=== PATIENT | male | born 1955 | race Caucasian/White ===

== ENCOUNTER 2017-07-20 21:14 | Emergency (ER) | payer BC, OTHER ==
[~2017-07-20] VITALS: Ht 185.4 cm; Wt 90.5 kg
[~2017-07-20 21:14] MED LIST: GLUCTAB PO; METH10TA PO
[2017-07-20 21:16] VITALS: BP 158/92; PULSE 115; RESP 16; TEMP 98.4; O2SAT 95
--- NOTE | 2017-07-20 21:42 | PD ---
Physical Exam Date Seen by Provider: Jul 20, 2017 Time Seen by Provider: 21:41 Narrative 61 yo male here for constipation. Feels like he has to go but "it wont pass". Painful. Cannot sit. Last BM yesterday and was hard. Today he had a small one. Using suppositories with minimal relief. No other medical issues. No N/V. Vitals are stable in triage. Awaiting bed placement. Data Data Last Documented VS Vital Signs Date Time Temp Pulse Resp B/P (MAP) Pulse Ox O2 Delivery O2 Flow Rate FiO2 07/20/17 21:16 98.4 115 16 158/92 (114) 95 Room Air [facility] Medical Record Reviewed: Yes Supervised Visit with PAN: No Jani Bobo Jul 20, 2017 21:42
[2017-07-20 22:27] VITALS: BP 150/78; PULSE 97; RESP 16; O2SAT 96
--- NOTE | 2017-07-20 22:40 | PD ---
HPI Chief Complaint: GI Complaint Time Seen by Provider: 22:36 Travel History International Travel<30 days: No Contact w/Intl Traveler<30days: No Traveled to known affect area: No History of Present Illness HPI This is a 61-year-old male who presents for evaluation of constipation. He reports that it was last normal bowel movement was yesterday. This morning he had a hard pebbly bowel movement but now it feels like there is a large bolus of stool that is unable to pass. He denies abdominal pain, nausea or vomiting. He reports that 2 days ago he finished a round of prednisone and an unknown antibiotic and he thinks that his current constipation may be related to the medications. Denies any opiate use. He has no other complaints at this time. [facility] Past Medical History Cancer: No Cardiovascular Problems: No Diabetes: Yes Patient Takes Glucophage: Yes Diminished Hearing: No Endocrine: No Genitourinary: No Hepatitis: Yes (hep c) Hiatal Hernia: No Immune Disorder: No Musculoskeletal: No Neurologic: No Psychiatric: Yes ("slight nervous disorder") Respiratory: No Immunizations Current: Yes Thyroid Disease: No Past Surgical History Surgical History: No Previous Surgery AICD: No Joint Replacement: No Pacemaker: No Social History Alcohol Use: No Tobacco Use: No Substance Use: No Allergies-Medications (Allergen,Severity, Reaction): Coded Allergies: No Known Allergies (Unverified , 07/20/17) Reported Meds & Prescriptions Reported Meds & Active Scripts Active Review of Systems Except as stated in HPI: all other systems reviewed are Neg Physical Exam Narrative GENERAL: Well-developed well-nourished male in no acute distress SKIN: Warm and dry. HEAD: Atraumatic. Normocephalic. EYES: Pupils equal and round. No scleral icterus. No injection or drainage. ENT: No nasal bleeding or discharge. Mucous membranes pink and moist. NECK: Trachea midline. No JVD. CARDIOVASCULAR: Regular rate and rhythm. No murmur appreciated. RESPIRATORY: No accessory muscle use. Clear to auscultation. Breath sounds equal bilaterally. GASTROINTESTINAL: Abdomen soft, non-tender, nondistended. Hepatic and splenic margins not palpable. Active bowel sounds in all 4 quadrants. Rectal examination reveals a large impaction. MUSCULOSKELETAL: No obvious deformities. No clubbing. No cyanosis. No edema. NEUROLOGICAL: Awake and alert. No obvious cranial nerve deficits. Motor grossly within normal limits. Normal speech. PSYCHIATRIC: Appropriate mood and affect; insight and judgment normal. Data Data Last Documented VS Vital Signs Date Time Temp Pulse Resp B/P (MAP) Pulse Ox O2 Delivery O2 Flow Rate FiO2 07/20/17 22:27 97 16 150/78 (102) 96 Room Air 07/20/17 21:16 98.4 Orders Orders Fleets Enema (Adult) (Fleets Enema (Adul (07/20/17 22:45) MDM Medical Decision Making Medical Screen Exam Complete: Yes Emergency Medical Condition: Yes Medical Record Reviewed: Yes Differential Diagnosis Fecal impaction, constipation, obstruction Narrative Course 61-year-old male who reports that his last normal time it was yesterday, presents for evaluation of constipation. Denies abdominal pain. His abdomen is soft and nontender. He does have a large fecal impaction on examination. Attempts at manually disimpacted were marginally successful however the patient was still unable to produce a bowel movement. Therefore fleets enema has been ordered. 2300: Upon reexamination the patient reports significant improvement after a large bowel movement. He is stable for discharge. Diagnosis Primary Impression: Fecal impaction Additional Instructions: Stay well-hydrated and well-nourished, high-fiber diet, follow-up with primary care physician as needed and return for any emergent medical conditions. Med/Other Pt SpecificInfo: No Change to Meds Disposition: 01 DISCHARGE HOME Condition: Stable Francisco Castañeda Jul 20, 2017 22:40
[2017-07-20] MEDS ORDERED: SOD PHOSPHATE/SOD BIPHOSPHATE (ADULT) ENEMA 133ML RECTAL ONE (22:45)
== END 2017-07-20 23:18 | disposition home or self-care (01) ==
LOC: NEPE 21:14
DX: K56.41 Fecal impaction (principal)
CPT/HCPCS: 99283